=== PATIENT | male | born 1995 | race African-American/Black ===

== ENCOUNTER 2017-12-03 12:05 | Emergency (ER) | payer MEDICAID ==
[~2017-12-03] VITALS: Ht 180.3 cm; Wt 72.0 kg
[2017-12-03] MEDS ORDERED: PENI250T2 PO (12:54)
[2017-12-03] MEDS ORDERED: HYDR-565 PO (12:54)
[2017-12-03] MEDS ORDERED: AMOX-580 PO (12:59)
[2017-12-03 13:25] VITALS: BP 141/77
== END 2017-12-03 13:27 | disposition home or self-care (01) ==
LOC: ER 12:06
DX: K04.7 Periapical abscess without sinus (principal); Z79.899 Other long term (current) drug therapy
CPT/HCPCS: 99283